=== PATIENT | female | born 1970 | race African-American/Black ===

== ENCOUNTER → 2024-08-17 | Day surgery (SDC) | payer OTHER ==
[2024-08-15 10:28] LABS: HEMATOCRIT 40.8 % (34.2-44.1); HEMOGLOBIN 13.4 g/dL (12.0-16.0)
[2024-08-15 10:51] LABS: CALCIUM 10.1 mg/dL (8.4-10.2); CREATININE, SERUM 1.06 mg/dL (0.57-1.11)
[~2024-08-17] MED LIST: ACID REDUCER10 MG; FENTANYL CITRATE/PF 100MCG/2 ML INJ ONE; HYDROCHLOROTHIA25 MG; LIDOCAINE HCL 2% LOCAL INJ 5 ML SDV VIAL INJ ONE; LOSARTAN POTAS100 MG PO; MIDAZOLAM HCL 2 MG/2 ML VIAL ONE; MULTI-VITAMIN1 EACH PO; ONDANSETRON HCL INJ 2MG/ML 2ML 2 MG/ML VIAL ONE; PROPOFOL IV EMULSION 10 MG/ML 20 ML VIAL ONE; VITAMIN B; VITAMIN D
[2024-08-17] MEDS: GATIFLOXACIN(OPTH) 5 ML LIQD ONE (06:03)
[2024-08-17] MEDS: LACTATED RINGER'S 1,000 ML ONE (06:03)
[2024-08-17] MEDS: TETRACAINE HCL 0.5% OPTH SOLN 4 ML BTL ONE (06:03)
[2024-08-17] MEDS: CYCLOPENTOLATE HCL 2% OPTH SOLN 2 ML BTL OP ONE (06:04)
[2024-08-17] MEDS: PHENYLEPHRINE HCL 2 ML DROPS ONE (06:04)
[2024-08-17 08:30] VITALS: BP 131/89; PULSE 64; RESP 16; TEMP 97.3; O2SAT 99
== END | disposition home or self-care (01) ==
LOC: OR 05:05
PROVIDERS: ATTEND Ophthalmology
DX: H25.11 Age-related nuclear cataract, right eye (principal); I10 Essential (primary) hypertension; Z01.810 Encounter for preprocedural cardiovascular examination; Z01.812 Encounter for preprocedural laboratory examination; Z79.899 Other long term (current) drug therapy
CPT/HCPCS: 36415; 66984; 80048; 85014; 85018; 93005; J2003; J2250; J2405; J2704; J3010; J7121; V2632

== ENCOUNTER → 2024-11-23 | Day surgery (SDC) | payer OTHER ==
[2024-11-17 13:06] LABS: HEMATOCRIT 37.7 % (34.2-44.1); HEMOGLOBIN 12.5 g/dL (12.0-16.0)
[2024-11-17 13:32] LABS: CALCIUM 9.7 mg/dL (8.4-10.2); CREATININE, SERUM 1.05 mg/dL (0.57-1.11)
[~2024-11-23] MED LIST changes: +DEXAMETHASONE SOD PHOS INJ 4 MG/ML SDV ONE; -FENTANYL CITRATE/PF 100MCG/2 ML INJ ONE; -MIDAZOLAM HCL 2 MG/2 ML VIAL ONE; -PROPOFOL IV EMULSION 10 MG/ML 20 ML VIAL ONE; +PROPOFOL IV EMULSION 50 ML IV ONE
[2024-11-23] MEDS: TETRACAINE HCL 0.5% OPTH SOLN 4 ML BTL ONE (06:03)
[2024-11-23] MEDS: GATIFLOXACIN(OPTH) 5 ML LIQD ONE (06:03)
[2024-11-23] MEDS: CYCLOPENTOLATE HCL 2% OPTH SOLN 2 ML BTL OP ONE (06:03)
[2024-11-23] MEDS: LACTATED RINGER'S 1,000 ML ONE (06:04)
[2024-11-23] MEDS: PHENYLEPHRINE HCL 2 ML DROPS ONE (06:04)
[2024-11-23 08:13] VITALS: TEMP 97.1
[2024-11-23 08:40] VITALS: BP 168/96; PULSE 62; RESP 16; O2SAT 97
== END | disposition home or self-care (01) ==
LOC: OR 05:28
PROVIDERS: ATTEND Ophthalmology
DX: H25.12 Age-related nuclear cataract, left eye (principal); I10 Essential (primary) hypertension; K21.9 Gastro-esophageal reflux disease without esophagitis; Z01.812 Encounter for preprocedural laboratory examination; Z79.899 Other long term (current) drug therapy
CPT/HCPCS: 36415; 66984; 80048; 85014; 85018; J1100; J2003; J2405; J2704; J7121; V2632